=== PATIENT | male | born 1975 | race Caucasian/White ===

== ENCOUNTER → 2020-02-10 10:36 | Outpatient (BNVA) | payer OTHER, SELFPAY | PROVIDERS: Visit Provider Family Medicine | DX: E78.2 Mixed hyperlipidemia (principal); Z87.19 Personal history of other diseases of the digestive system; Z87.39 Personal history of other diseases of the musculoskeletal system and connective tissue; Z98.52 Vasectomy status; Z98.890 Other specified postprocedural states; M54.9 Dorsalgia, unspecified; G89.29 Other chronic pain; R03.0 Elevated blood-pressure reading, without diagnosis of hypertension | CPT/HCPCS: 80053; 80061; 83036; 84443; 85025 ==

== ENCOUNTER → 2020-08-12 12:56 | Outpatient (BNVA) | payer OTHER, SELFPAY | PROVIDERS: Visit Provider Surgery | DX: Z01.818 Encounter for other preprocedural examination (principal); Z20.822 Contact with and (suspected) exposure to COVID-19 | CPT/HCPCS: 87635 ==

== ENCOUNTER 2020-08-18 06:06 | Day surgery (SDC) | payer OTHER, SELFPAY ==
[2020-08-17 10:42] VITALS: BMI 23.7
[2020-08-18 06:21] VITALS: BP 152/99; PULSE 62; RESP 18; TEMP 36.8; O2SAT 98
[2020-08-18] MEDS: sodium chloride 0.9% 1,000 ML 30 ML IV (06:54)
--- NOTE | 2020-08-18 07:16 | ANES.PREANE2 ---
Pre-Anesthetic Assessment Pre-Anesthetic Assessment: Height/Weight: Height 1.8 m Weight 77.111 kg Temp Pulse Resp BP Pulse Ox 98.2 F 62 18 152/99 98 08/18/20 06:21 08/18/20 06:21 08/18/20 06:21 08/18/20 06:21 08/18/20 06:21 Proposed Procedure: Operation Date: 08/18/20 07:30 Proposed Procedures p Inguinal Hernia Repair [id number] K40.90(Left) - Jaret Antunez MD Was Beta Bossman taken within 24 hours: N/A Was Clonidine taken within 24 hours: N/A Last intake: Intake Last Liquid Date 08/17/20 Last Liquid Time 22:00 Last Solid Date 08/17/20 Last Solid Time 19:30 Social: Social History: No alcohol and No tobacco Exam: Pre-Anes Outpt Exam: alert, oriented x 3, clear to auscultation bilaterally and regular rate & rhythm Airway: Submandibular: WNL Cervical ROM: WNL MP: 2 Dentition: Full Metabolic: Metabolic: Hyperlipidemia Musc/skel: Musc/skel: Lower Back Pain Anesthetic Plan: ASA status: 2 Anesthesia: MAC Risk of > 500 ml blood loss (7ml/kg in children): No Meds/Allergies Current Medications: Current Medications Generic Name Dose Route Start Last Admin Trade Name Freq PRN Reason Stop Dose Admin Sodium Chloride 1,000 mls @ 30 ml s/hr 08/18/20 06:15 08/18/20 06:54 Sodium Chloride 0.9% IV 08/19/20 06:14 30 mls/hr .Q24H CARL Administration PFSH Anesthesia PFSH: Medical History History of back pain Mixed hyperlipidemia Surgical History History of back surgery History of hernia repair History of vasectomy Social History Smoking and tobacco status: never smoked Second hand smoke exposure: No Smoking risk assessment/counseling performed?: No Alcohol intake: never Desire information about alcohol rehabilitation?: No Counseling given: No Desire information about substance/drug rehabilitation?: No Counseling given: No Caregiver/support person: Yes Lives independently: Yes Household members: spouse Current gender identity: Male Data Anesthesia Cardiac Studies: No Data to Display
--- NOTE | 2020-08-18 07:27 | W.PM.OPSUD ---
Surgery/Procedure H&P Update DATE OF PROCEDURE: August 18, 2020 DATE H&P PERFORMED: 08/09/20 H&P UPDATE INFORMATION: No changes to prior documentation PREOP DIAGNOSIS: Left inguinal hernia. PLANNED PROCEDURE: Operation Date: 08/18/20 07:30 Proposed Procedures p Inguinal Hernia Repair [id number] K40.90(Left) - Jaret Antunez MD
--- NOTE | 2020-08-18 07:59 | P.OP_ITS ---
Operative Report Date of procedure: August 18, 2020 Pre-op Diagnosis: Left inguinal hernia. Post-op Diagnosis: Left indirect inguinal hernia. Procedure Done: Repair of left inguinal hernia with mesh. Pathology: none sent Surgeon: Jaret Antunez Anesthesia: MAC Estimated blood loss (mL): 2 Condition: stable Disposition: same day Procedure: The patient was brought to the operating room and was placed in a supine position on the operating room table. A monitored anesthetic was induced. The left inguinal region was prepped and draped in a sterile fashion. A combination of 1% lidocaine and 0.5% bupivacaine with 1-200,000 parts epinephrine was used for local anesthesia throughout the procedure. A transverse incision was carried out above the level of the pubic tubercle. Cautery was used to divide the subcutaneous tissue down to the external oblique aponeurosis which was incised in parallel with its fibers over the inguinal canal. The spermatic cord was looped with a Needmore drain. An indirect hernia was found at the internal ring. The hernia sac and contents were carefully freed from the cord structures down to the internal ring and the hernia sac was reduced. A medium mesh plug was used to hold the hernia sac in a reduced position and was held in place with a suture of 0 Prolene that was used to connect the conjoined area medially to the reflecting edge of Poupart's ligament laterally. The onlay patch was anchored at the tubercle with a suture of 0 Prolene and was laid along the inguinal canal floor, allowing the cord structures to pass through the precut hole in the mesh. The two wings of mesh w ere sewn to each other above the level of the internal ring with a suture of 0 Prolene. The external oblique aponeurosis was closed over the top of the cord using a running suture of 3-0 Vicryl. The wound was irrigated with saline. The subcutaneous tissue was brought together with a simple suture of 3-0 Vicryl and the skin was approximated using a running subcuticular suture of 3-0 Vicryl. Benzoin and Steri-Strips were placed over the incision and a sterile bandage followed. The patient was taken to the recovery area in stable condition postoperatively.
[2020-08-18 08:04] VITALS: BP 111/68; PULSE 67; RESP 12; TEMP 36.5; O2SAT 96
[2020-08-18 08:10] VITALS: BP 119/72; PULSE 65; RESP 18; TEMP 36.5; O2SAT 96
[2020-08-18 08:16] VITALS: BP 109/87; PULSE 66; RESP 18; TEMP 36.5; O2SAT 98
[2020-08-18] MEDS: HYDROcodone-acetaminophen 5-325 mg Tablet 1 TAB PO (08:30)
--- NOTE | 2020-08-18 13:28 | ANE.PACU2 ---
Inpatient post-anesthesia follow up: Airway intact: Yes Vital signs: Temperature 97.7 F Pulse Rate 66 Respiratory Rate 18 Blood Pressure 109/87 Pulse Oximetry 98 Oxygen Delivery Me thod Room Air Oxygen Flow Rate Fraction of Inspir ed Oxygen Hydration adequate: Yes Nausea and vomiting: No Pain level: 1 Mental status: Baseline
== END 2020-08-18 08:43 | disposition home or self-care (01) ==
PROVIDERS: Visit Provider Surgery
PROC: (CPT 49505; principal; 2020-08-18 07:30)
DX: K40.90 Unilateral inguinal hernia, without obstruction or gangrene, not specified as recurrent (principal); E78.2 Mixed hyperlipidemia
CPT/HCPCS: 49505; J0690; J2250; J2704; J3010; J3490; J7030

== ENCOUNTER → 2021-02-14 08:19 | Outpatient (BNVA) | payer SELFPAY | PROVIDERS: PCP Nurse Practitioner Family; Referring Provider Family Medicine; Visit Provider Dermatology | DX: Z01.89 Encounter for other specified special examinations (principal) ==

== ENCOUNTER → 2022-02-13 08:36 | Outpatient (BNVA) | payer SELFPAY | PROVIDERS: PCP Nurse Practitioner; Visit Provider Dermatology | DX: I10 Essential (primary) hypertension (principal); E78.2 Mixed hyperlipidemia ==

== ENCOUNTER → 2023-02-12 08:08 | Outpatient (BNVA) | payer SELFPAY | PROVIDERS: PCP Family Medicine; Visit Provider Nurse Practitioner Family | DX: Z13.6 Encounter for screening for cardiovascular disorders (principal); Z01.89 Encounter for other specified special examinations ==